=== PATIENT | male | born 1965 | race Caucasian/White ===

== ENCOUNTER 2020-05-27 13:51 | Outpatient (REF) | payer OTHER, SELFPAY ==
[2020-05-27 18:39] LABS: Estimated Average Glucose 157 mg/dL; Hemoglobin A1c % 7.1 %
[2020-05-27 18:55] LABS: Alanine Aminotransferase 20 U/L (0-40); Albumin Level 3.7 g/dL (3.5-5.0); Alkaline Phosphatase 121 U/L (39-117); Anion Gap 16 (12-20); Aspartate Amino Transferase 36 U/L (5-37); Blood Urea Nitrogen 19 mg/dL (9-16); Carbon Dioxide 29 mmol/L (22-29); Chloride 99 mmol/L (96-108); Cholesterol 128 mg/dL; Estimated Glomerular Filt Rate > 60; Glucose Fasting 220 mg/dL (60-99); HDL Cholesterol 42 mg/dL; LDL Cholesterol Calculated 60 mg/dl; Potassium 4.4 mmol/l (3.3-5.1); Sodium 140 mmol/L (135-145); Total Protein 6.4 g/dL (6.5-8.0); Triglycerides 131 mg/dL
== END 2020-05-27 13:52 | disposition home or self-care (01) ==
LOC: HO.MANLR 13:51
PROVIDERS: PCP Internal Medicine; Visit Provider Physician Assistant
DX: E10.65 Type 1 diabetes mellitus with hyperglycemia (principal)
CPT/HCPCS: 36415; 80053; 80061; 83036

== ENCOUNTER 2021-01-15 15:19 | Outpatient (REF) | payer OTHER, SELFPAY ==
[2021-01-15 18:53] LABS: Estimated Average Glucose 143 mg/dL; Hemoglobin A1c % 6.6 %
[2021-01-15 19:00] LABS: Alanine Aminotransferase 28 U/L (0-40); Albumin Level 3.9 g/dL (3.5-5.0); Alkaline Phosphatase 128 U/L (39-117); Anion Gap 14 (12-20); Aspartate Amino Transferase 27 U/L (5-37); Bilirubin Total 0.9 mg/dL (0.0-1.0); Blood Urea Nitrogen 16 mg/dL (9-16); Calcium 9.5 mg/dL (8.4-10.2); Carbon Dioxide 24 mmol/L (22-29); Chloride 101 mmol/L (96-108); Cholesterol 156 mg/dL; Estimated Glomerular Filt Rate > 60; Glucose Random 268 mg/dL (60-115); HDL Cholesterol 44 mg/dL; LDL Cholesterol Calculated 74 mg/dl; Potassium 5.2 mmol/L (3.3-5.1); Sodium 134 mmol/L (135-145); Total Protein 7.1 g/dL (6.5-8.0); Triglycerides 190 mg/dL
[2021-01-15 19:02] LABS: Creatinine Urine 49.45 mg/dL; Microalbum/Creatinine Ratio Ur 436.8 ug/mg cr
== END 2021-01-15 15:20 | disposition home or self-care (01) ==
LOC: HO.MANLDS 15:19
PROVIDERS: PCP Physician Assistant; Visit Provider Physician Assistant
DX: E10.65 Type 1 diabetes mellitus with hyperglycemia (principal)
CPT/HCPCS: 36415; 80053; 80061; 82043; 83036

== ENCOUNTER 2021-07-09 14:18 | Outpatient (REF) | payer OTHER, SELFPAY ==
[2021-07-09 18:25] LABS: Estimated Average Glucose 157 mg/dL; Hemoglobin A1c % 7.1 %
== END 2021-07-09 14:19 | disposition home or self-care (01) ==
LOC: HO.MANLDS 14:18
PROVIDERS: PCP Physician Assistant; Visit Provider Physician Assistant
DX: E10.65 Type 1 diabetes mellitus with hyperglycemia (principal)
CPT/HCPCS: 36415; 83036

== ENCOUNTER 2021-10-28 12:24 | Outpatient (REF) | payer OTHER, SELFPAY ==
[2021-10-28 19:39] LABS: Alanine Aminotransferase 34 U/L (0-40); Albumin Level 3.6 g/dL (3.5-5.0); Alkaline Phosphatase 128 U/L (39-117); Anion Gap 15 (12-20); Aspartate Amino Transferase 21 U/L (5-37); Bilirubin Total 0.8 mg/dL (0.0-1.0); Blood Urea Nitrogen 24 mg/dL (9-16); Calcium 8.7 mg/dL (8.4-10.2); Carbon Dioxide 22 mmol/L (22-29); Chloride 105 mmol/L (96-108); Cholesterol 93 mg/dL; Estimated Glomerular Filt Rate 51; Glucose Random 170 mg/dL (60-115); HDL Cholesterol 38 mg/dL; LDL Cholesterol Calculated 44 mg/dl; Potassium 4.4 mmol/L (3.3-5.1); Sodium 138 mmol/L (135-145); Total Protein 6.3 g/dL (6.5-8.0); Triglycerides 57 mg/dL
[2021-10-29 07:00] LABS: Estimated Average Glucose 169 mg/dL; Hemoglobin A1c % 7.5 %
== END 2021-10-28 12:25 | disposition home or self-care (01) ==
LOC: HO.MANLDS 12:24
PROVIDERS: Visit Provider Physician Assistant
DX: R10.9 Unspecified abdominal pain (principal)
CPT/HCPCS: 36415; 80053; 80061; 83036

== ENCOUNTER 2022-10-09 10:57 | Outpatient (REF) | payer OTHER, SELFPAY ==
[2022-10-09 14:27] LABS: Estimated Average Glucose 177 mg/dL; Hemoglobin A1c % 7.8 %
[2022-10-09 14:29] LABS: Alanine Aminotransferase 25 U/L (0-40); Albumin Level 3.6 g/dL (3.5-5.0); Alkaline Phosphatase 127 U/L (39-117); Anion Gap 15 (12-20); Aspartate Amino Transferase 24 U/L (5-37); Bilirubin Total 1.1 mg/dL (0.0-1.0); Blood Urea Nitrogen 16 mg/dL (9-16); Calcium 9.3 mg/dL (8.4-10.2); Carbon Dioxide 24 mmol/L (22-29); Chloride 105 mmol/L (96-108); Estimated Glomerular Filt Rate > 60; Glucose Random 225 mg/dL (60-115); Potassium 4.7 mmol/L (3.3-5.1); Sodium 139 mmol/L (135-145); Total Protein 6.4 g/dL (6.5-8.0)
== END 2022-10-09 10:58 | disposition home or self-care (01) ==
LOC: HO.MANLDS 10:57
PROVIDERS: Visit Provider Physician Assistant
DX: E10.9 Type 1 diabetes mellitus without complications (principal)
CPT/HCPCS: 36415; 80053; 83036

== ENCOUNTER 2023-05-21 07:56 | Outpatient (REF) | payer OTHER, SELFPAY | END 2023-05-21 07:57 | disposition home or self-care (01) | LOC: HO.MANLDS 07:56 | PROVIDERS: Visit Provider Physician Assistant | DX: E10.9 Type 1 diabetes mellitus without complications (principal) | CPT/HCPCS: 36415; 80053; 80061; 83036 ==

== ENCOUNTER 2024-12-28 07:09 | Outpatient (REF) | payer OTHER, SELFPAY ==
--- OUTSIDE RECORDS SUMMARY | 2024-12-24 23:59 | XMS_ITS | Continuity of Care Document ---
Author Organization [facility] Address [address] [place] [address] [facility] Name Relationship Address Phone SHANTANU MENA spouse Unknown Unavailable ALYSE MENA mother Unknown Unavailable SHANTANU MENA Personal Relationship Unknown Unav ailable SHERMANLLSON, SHANTANU sibling Unknown Unavailable DANAE MENA Personal Relationship Unknown Unava ilable DANAE MENA Personal Relationship Unknown Unava ilable TRINA, OCTOBER former spouse Unknown Unavailable SHANTANU ALDRIDGE Personal Relationship Unknown Vika vailable Care Team Providers Care Print Washer Name Role Phone Carlos Cortés DO Chantal Primary Care Physician [phone] Encounter [facility] Date(s): 11/24/24 - 12/24/24 [facility] [address] [place] [id number]- Encounter Type: Triage Allergies, Adverse Reactions, Alerts No Known Allergies Immunizations Given and Recorded Vaccine Date Status Refusal Reason pneumococcal 23-valent vaccine 03/03/14 Given Medications acetaminophen 325 mg oral tablet 650 mg, By Mouth, Every 4 hours, PRN, Temperature Greater than 100.5, Refills 0, Maintenance, Headache Pain , Mild, 06/16/16 9:56:10 AM EST Start Date: 06/16/16 Status: Ordered Repeat number: 1 aspirin 81 mg oral delayed release tablet = 81 mg, By Mouth, Daily, # 30 tablet, 11 Refills, Maintenance, 03/16/21 6:45:00 AM EDT, EC Tablet,[facility], Partial fill upon patient request if the prescription is for a schedule II opioid drug., 167.64, cm, 03/16/21 3:23:00 EDT, Height, 119.9, kg, 03/13/21 9:21:00 EDT, Dry Weight Start Date: 10/31/21 Status: Ordered Quantity: 30.0 Unit: tablet Repeat number: 12 atorvastatin 80 mg oral tablet 1 tablet = 80 mg, By Mouth, Daily, # 90 tablet, 3 Refills, Maintenance, 11/24/24 10:19:00 AM EDT, Tablet, [facility], Partial fill upon patient request if the prescription is for a schedule II opioid drug., 168, cm, 03/22/24 8:59:00 EST, Height Start Date: 11/24/24 Status: Ordered Quantity: 90.0 Unit: tablet Repeat number: 4 Brilinta (ticagrelor) 90 mg oral tablet 1 tablet, By Mouth, 2 times a day, # 180 tablet, 3 Refills, Maintenance, 03/27/24 8:02:00 AM EST, [facility], 168, cm, 03/22/24 8:59:00 EST, Height, 118, kg, 11/09/22 22:27:00 EDT, Dry Weight Start Date: 03/27/24 Status: Ordered Quantity: 180.0 Unit: tablet Repeat number: 1 Compression Stockings See Instructions, # 1 pair, Maintenance, Juxta Lite Circaid compression wrap Right leg 30-40mmHg, 10/19/16 8:18:18 AM EDT, Compound Start Date: 10/19/16 Status: Ordered Quantity: 1.0 Unit: pair Repeat number: 1 Indications: Varicose veins of right lower extremity with both ulcer of unspecified site and inflammation; Entresto 97 mg-103 mg oral tablet 1 tablet, By Mouth, 2 times a day, # 180 tablet, 3 Refills, Maintenance, 04/19/24 9:33:00 AM EST, Tablet, [facility], Partial fill upon patient request if the prescription is for a schedule II opioid drug., 1 tablet By Mouth 2 times a day, 168, cm, 03/22/24 8:59:00 EST, Height, 118, kg, 11/09/22 22:27:00 EDT, Dry Weight Start Date: 04/19/24 Status: Ordered Quantity: 180.0 Unit: tablet Repeat number: 4 eplerenone 25 mg oral tablet 1 tablet = 25 mg, By Mouth, Daily, # 90 tablet, 3 Refills, Maintenance, 03/22/24 9:04:00 AM EST, Tablet, [facility], Partial fill upon patient request if the prescription is fora schedule II opioid drug., 168, cm, 03/22/24 8:59:00 EST, Height, 118, kg, 11/09/22 22:27:00 EDT, Dry Weight Start Date: 03/22/24 Status: Ordered Quantity: 90.0 Unit: tablet Repeat number: 4 furosemide 40 mg oral tablet 1, tablet, By Mouth, 2 times a day, # 180 tablet, Refills 3, Maintenance, 04/03/24 8:08:00 AM EST, Route to Pharmacy Electronically, [facility], 168, cm, 03/22/24 8:59:00 EST, Height, 118, kg, 11/09/22 22:27:00 EDT, Dry Weight Start Date: 04/03/24 Status: Ordered Quantity: 180.0 Unit: tablet Repeat number: 1 Humalog 100 u/ml subcutaneous injection 80 - 100 units, Daily, via insulin pump, 5 Refills, Maintenance, 03/07/21 4:12:00 PM EDT, Partial fill upon patient request if the prescription is for a schedule II opioid drug. Start Date: 03/07/21 Stop Date: 04/06/21 Status: Ordered Repeat number: 1 Metoprolol Succinate ER 100 mg oral tablet, extended release 1, tablet, By Mouth, Daily, # 90 tablet, Refills 2, Maintenance, 11/10/24 10:00:00 AM EDT, Route to Pharmacy Electronically, [facility], 168, cm, 03/22/24 8:59:00 EST, Height Start Date: 11/10/24 Status: Ordered Quantity: 90.0 Unit: tablet Repeat number: 1 Problem List Condition Confirmation Course Effective Dates Status H ealth Status Informant Anemia of chronic disease Confirmed Active Atherosclerosis Confirmed Active Coronary artery disease Confirmed Active Diabetes mellitus type I Confirmed Active Edema of lower extremity Confirmed Active Exertional angina Confirmed Active Heart failure with preserved ejection fraction Confirmed Active Hyperlipidemia Confirmed Active Hypertension Confirmed Active Wound, open Confirmed Active PAD (peripheral artery disease) Confirmed Active Retinopathy Confirmed Active Severe obesity Confirmed Active Social History Social History Type Response Smoking Status Never smoker entered on: 12/26/13 Sex Sex Representation Male (finding) Patient Care team information Care Team Personnel Name: Vandana Meneses RN Position: [facility] RN Member Role: Primary Care Nurse Name: Cynthia Fisher RN Position: [facility] RN Member Role: Primary Care Nurse Name: Marycarmen Wang RN Position: [facility] District Plant Supervisor Member Role: Primary Care Nurse Name: Jonathan Livingston RN Position: [facility] ED RN W/OE and Tasks Member Role: Primary Care Nurse Name: Carlos Cortés DO Position: Reference Physician Member Role: PCP Address: [address] [place] [address] [place] [address]- [place] Telecom: Name: Alan Mckenzie RN Position: [facility] SN RN Member Role: Primary Care Nurse Name: Shellie Morton RN Position: [facility] RN Member Role: Primary Care Nurse Name: Nemo Cortes RN Position: [facility] District Plant Supervisor Member Role: Primary Care Nurse Name: Wendy Gayle RN Position: [facility] ED RN W/OE and Tasks Member Role: Primary Care Nurse Name: Sheryl Carr RN Position: [facility] SN RN Member Role: Primary Care Nurse Name: Jordana Michaels RN Position: [facility] RN Member Role: Primary Care Nurse Name: Lance Jones III, RN Position: [facility] RN Member Role: Primary Care Nurse Name: Yariel Solano RN Position: [facility] SN RN Member Role: Primary Care Nurse Name: Giselle Jones RN Position: [facility] RN Member Role: Primary Care Nurse Name: Royal Raymond RN Position: [facility] Onco RN Member Role: Primary Care Nurse Name: Rosy Woodruff RN Position: [facility] SN RN Member Role: Primary Care Nurse Name: Anibal Danielle MD Position: [facility] Cardiology MD Member Role: Lifetime Consulting Physician Address: [address] [facility], 1st floor [facility] [place] [address]- [place] Telecom: Name: Tunde Hernandez MD Position: [facility] Renal MD Member Role: Lifetime Consulting Physician Address: [address] [facility] [facility] [address] [facility] [place] [address]- [place] Telecom: Name: Ashwin Farias RNeeprem Position: [facility] SN RN Member Role: Primary Care Nurse Care Team Related Persons Name: SHANTANU FORMAN Name: ALYSE MENA Name: SHANTANU MENA Name: MATT MENA Insurance Providers Guarantor name: DANAE MENA [facility] Plan Information #: 1 Payer: [facility] HMO Payer Identifier: NA Member Number: [id number] Group Number: [id number] Subscriber Identifier: [id number] Relationship to Subscriber: self Coverage Type: Commercial Managed Care - HMO Coverage Verification Date: NA Telecom: [facility] Address:
--- OUTSIDE RECORDS SUMMARY | 2024-12-28 07:12 | XMS_ITS | Clinical Summary ---
Author Organization [facility] Address [address] [place] [id number] Care Team Providers Care Senior Planning Analyst Name Role Phone Carlos Cortés DO Primary Care Provider [phone] Allergies No known active allergies Medications aspirin (ST RASHEED) 81 MG EC tablet Take 81 mg by mouth 1 (one) time each day Active furosemide (LASIX) 20 MG tablet Take 20 mg by mouth 1 (one) time each day 05/22/2019 Active atorvastatin (LIPITOR) 80 MG tablet Take 80 mg by mouth 1 (one) time each day Active metoprolol tartrate (LOPRESSOR) 100 MG tablet Take 200 mg by mouth 2 (two) times a day Active insulin aspart (NovoLOG) 100 UNIT/ML injection Active sacubitril-valsa rtan (Entresto) 24-26 MG per tablet Take 1 tablet by mouth 2 (two) times a day Active Active Problems Problem Noted Date Diagnosed Date Chronic kidney disease, stage 2 (mild) 2 Anemia of chronic disease 01/12/2022 Edema of lower extremity 01/12/2022 Exercise-induced angina 01/12/2022 Heart failure with normal ejection fraction 12/16 Open wound 01/12/2022 Peripheral arterial occlusive disease 01/12/2022 Stage 3a chronic kidney disease 12/12/2020 Chronic kidney disease, stage 2 (mild) 1 Acute nontraumatic kidney injury 12/11/2020 Chronic kidney disease stage 3 12/11/2020 [place] [employer] Association Classification - Clas s II 10/04/2020 Type 1 diabetes mellitus 09/08/2019 Overview (12/11/2020): DIABETES HISTORY Diagnosis - type 1 diabetes, dx at age 9 Treatment - started insulin pump therapy in ~2007 Last Assessment & Plan: Routine eye care is up to date Blood sugar and blood pressure control is very good We did not adjust insulin pump settings today, Ameya tends to calculate his doses manually, not utilizing bolus wizard We discussed likely value of CGM however this is cost prohibitive and Ameya is maintaining good control and reports modest variability without significant hypoglycemia frequency Continues on statin therapy Up to date on flu vaccine per history Encouraged to call with any questions or concerns, we will follow up in 6 months Essential hypertension 05/23/2018 Overview (12/11/2020): Last Assessment & Plan: No longer on ACEi therapy Blood pressure goal is <130/80 due to CAD, DM w/ PDR Renal disorder due to type 1 diabetes mellitus 0 05/23/2018 Overview (12/11/2020): Last Assessment & Plan: Self monitoring blood sugars frequently We did not discuss recent glucose data, Ameya states that these have been largely unchanged and in reasonable range Most recent A1c on file is from over a year ago and this indicated good control We did not discuss changes to insulin infusion settings due to lack of glucose data, Ameya is encouraged to continue to monitor blood sugar patterns and to reach out to us with any questions Advised to continue to do his best with healthy eating in these challenging times and to try to make an effort to be active, at least briefly, daily Ameya seems to be struggling emotionally currently due to loss of job and general isolation, this certainly can affect his diabetes self management as well as his insulin requirement, he is encouraged to reach out to us with any concerns or questions Resolved Problems Problem Noted Date Diagnosed Date Resolved Date Insulin pump present 09/08/2019 021 Overview (12/11/2020): Last Assessment & Plan: Current insulin pump setting Time Basal Rates? Time ICR Time ISF Time Target IOB 12am 1.5u/hr 12am 40 12am 40 12am 70-120 mg/dl 8hrs 9am 0.9 12pm 0.85 4pm 1.1 Not using bolus wizard We discussed current insulin pump settings particularly the insulin on board which is inappropriately long, since Ameya is not using bolus wizard or entering glucose values for corrections he is not being impacted by this setting however if he was to we discussed the likely effects of this Currently receiving enough pump supplies, cannot afford CGM unfortunately Osteomyelitis of left foot 05/23/2018 0 12/11/2020 Amputated below knee 05/23/2018 021 Bilateral cataracts 05/23/2018 12/12/19 21 Coronary arteriosclerosis 05/23/2018 Hyperlipidemia 05/23/2018 12/11/2020 Overview (12/11/2020): Last Assessment & Plan: Currently on high intensity statin therapy No recent labs available for review Microalbuminuric diabetic nephropathy 05/23/2018 12/11/2020 Neuropathy due to diabetes mellitus 05/23/2018 12/11/2020 Nonproliferative retinopathy due to diabetes mellitus 05/23/2018 12/11/2020 Obesity 05/23/2018 12/11/2020 Stented coronary artery 05/23/201811/15 Immunizations Immunization Administration Dates Next Due Influenza (IM) Preservative Free 12/21/2015 Influenza, Quadrivalent, Preservative Free 12/15 Influenza, Quadrivalent, With Preservative 05/26,12/15/2016,12/21/2015 Influenza, Unspecified 04/01/2009 [employer] SARS-COV-2 09/04/2020,08/12/2020 Pfizer SARS-COV-2 05/26/2021,09/04/2020,08/13/19 21 Pneumococcal Polysaccharide 03/03/2014 Family History Medical History Relation Comments Diabetes Father Heart disease Father Hypertension Father Relation Status Comments Father Social History Tobacco Use Types Packs/Day Years Used Date Smoking Tobacco: Never Smokeless Tobacco: Never Alcohol Use Standard Drinks/Week Comments Yes 0 (1 standard drink = 0.6 oz pure alcohol) Alcoholic Drinks/day: Occasional social drink Sex and Gender Information Value Date Recorded Sex Assigned at Not on file Legal Sex Male 4:48 PM EST Gender Identity Not on file Sexual Orientation Not on file Last Filed Vital Signs Vital Sign Reading Time Taken Comments Blood Pressure 119/62 01/03/2024 2:09 PM EDT Pulse 78 01/03/2024 2:09 PM EDT Temperature - - Respiratory Rate - - Oxygen Saturation 98% 01/03/2024 2:09 PM EDT Inhaled Oxygen Concentration - - Weight 119 kg (261 lb 12.8 oz) 01/03/2024 2:09 P M EDT Height 167.6 cm (5' 6 ) 03/07/2019 12:00 PM EDT Body Mass Index 42.26 03/07/2019 12:00 PM EDT Plan of Treatment Upcoming Encounters Date Type Department Care Team (Late st Contact Info) Description 01/01/2025 1:15 PM EDT Office Visit [facility] [address] [place] [address] Tunde Hernandez MD [address] [facility] [address] [place] [id number] Health Maintenance Due Date Last Done Comments Colorectal Cancer Screening: Annual FOBT 2013 Colorectal Cancer Screening: Colonoscopy 2013 Colorectal Cancer Screening: Sigmoidoscopy 2013 Pneumococcal Vaccine: 50+ Years (2 of 2 - PCV) 03/03/2015 03/03/2014 Diabetes: Ophthalmology Exam 06/13/2020 Diabetes: Pedal Pulse Checked 06/13/2020 Diabetes: Sensory Foot Exam 06/13/2020 Diabetes: Visual Foot Exam 06/13/2020 Diabetes: Hemoglobin A1C 01/09/2023 023, 09/23/2020, 03/25/2020, Additional history exists Influenza Vaccine (#1) 2025 2, 12/15/2016, 12/15/2016, Additional history exists Pneumococcal Vaccine: Peds (0 to 5 Years) and At-Risk Patients (6 to 49 Years) Discontinued 03/03/2014 Hepatitis B Vaccine Aged Out No longe r eligible based on patient's age to complete this topic Procedures Procedure Name Priority Date/Time Associated Diagnosis Comments EXT RESULT ENTRY Routine 10/09/2022 from Last 3 Months or Most Recently Relevant to Health Maintenance Results * (ABNORMAL) EXT RESULT ENTRY (10/09/2022) Sodium 139 137 - 147 Potassium 4.7 3.4 - 5.5 Chloride 105.0 99.0 - 108.0 Anion Gap 15 <=30 MMOL/L BUN 16 4 - 21 mg/dL Creatinine 1.07 0.60 - 1.30 mg/dL Albumin 3.6 3.5 - 5.0 g/dL Calcium 9.3 8.7 - 10.7 mg/dL eGFR Non-Afr Iranian 60 Hemoglobin A1C 7.8(A) 4.0 - 6.0 10/09/2022 us Historical Provider LAB BLOOD ORDERABLES Sally l Result from Last 3 Months or Most Recently Relevant to Health Maintenance Insurance [facility] Care Teams Senior Planning Analyst Relationship Specialty Start Date End Date Carlos Cortés DO [address] [place] [address] [facility] - General 05/27/20
--- OUTSIDE RECORDS SUMMARY | 2024-12-28 07:12 | XMS_ITS | Clinical Summary ---
Author Organization [facility] Address [address] [place] [id number] Phone Care Team Providers Care Clay Machine Operator Name Role Phone Carlos Cortés DO Primary Care Provider [phone] Allergies No known active allergies Medications aspirin 81 MG EC tablet Take 1 tablet by mouth daily. Active Medication-Free Text Misc. Devices Air cast walking boot , Sig: as directed DX: E08.621, M86.172 6 Active TRUEPLUS LANCETS 30 gauge Misc USE TO TEST 6 TIMES A DAY 200 each 12 8 Active SACUBITRIL-VALSAR PERALES 24-26 mg per tablet Take 1 tablet by mouth 2 (two) times a day. 1 Active metoprolol succinate (TOPROL-XL) 100 MG 24 hr tablet Take 200 mg by mouth daily. 1 Active BRILINTA 90 mg Tab Take 90 mg by mouth 2 (two) times a day. 1 Active atorvastatin (LIPITOR) 80 MG tablet Take 80 mg by mouth. Active furosemide (LASIX) 40 MG tablet Take 40 mg by mouth 2 (two) times a day. 1 Active glucagon (BAQSIMI) 3 mg/actuation SpryIndications:T ype 1 diabetes mellitus with stable proliferative retinopathy, unspecified laterality 3 mg by Nasal route as needed (in case of severe hypoglycemia). 2 each 3 1 Active colchicine (MITIGARE) 0.6 mg capsule Take 0.6 mg by mouth daily. Active insulin aspart U-100 (NOVOLOG U-100 INSULIN ASPART) 100 unit/mL injection vialIndications:T ype 1 diabetes mellitus with stable proliferative retinopathy, unspecified laterality,Type 1 diabetes mellitus with stage 3 chronic kidney disease, with long-term current use of insulin,Insulin pump in place Administer 80-100 units via insulin pump daily E10.22 E10.40 90 mL 3 5 Active Active Problems Problem Noted Date Diagnosed Date Type 1 diabetes mellitus with proliferative reti nopathy 09/08/2019 Overview (09/08/2019): DIABETES HISTORY Diagnosis - type 1 diabetes, dx at age 9 Treatment - started insulin pump therapy in ~2007 Assessment & Plan (09/04/2024 9:54 AM EDT): Routine eye care is up to date Blood sugar control has worsened based on today's A1c, we did not have glucose patterns available for review Blood pressure control is very good We did not adjust insulin pump settings today, Ameya calculates his doses manually, not utilizing bolus wizard Ameya is aware of the likely value of CGM and we revisited this today however this has been cost prohibitive, we discussed that it would be in his best interest to utilize the [employer] Guardian sensor which will integrate with his insulin pump, advised to discuss coverage for this with [employer] and/or his DME supplier Continues on statin therapy and ARB Encouraged to call with any questions or concerns, we will follow up in 6 months Assessment & Plan (02/14/2024 1:24 PM EDT): Routine eye care is up to date, has upcoming appt Blood sugar control is good and blood pressure control is very good We did not adjust insulin pump settings today, Ameya tends to calculate his doses manually, not utilizing bolus wizard Based on blood sugar data, there are no patterns which would necessitate infusion setting changes, CGM data would likely provide more information to help guide appropriate insulin pump infusion setting changes Ameya is aware of the likely value of CGM however this has been cost prohibitive, we discussed that it appears his [employer] plan covers Dexcom, a prescription for Dexcom G7 has been sent and he will chavez this out at his pharmacy, if he is able to obtain this then he is advised to return to meet with a member of our team to get started with this Ameya has updated his insulin pump, now on Medtronic 780G Continues on statin therapy and ARB Encouraged to call with any questions or concerns, we will follow up in 6 months Assessment & Plan (11/30/2022 1:20 PM EDT): Routine eye care is up to date Blood sugar control is good and blood pressure control is very good We did not adjust insulin pump settings today, Ameya tends to calculate his doses manually, not utilizing bolus wizard Based on blood sugar data, there are no patterns which would necessitate infusion setting changes, CGM data would likely provide more information to help guide appropriate insulin pump infusion setting changes Ameya is aware of the likely value of CGM however this has been cost prohibitive, we discussed that it appears his [employer] plan covers Dexcom however he has a high deductible that he needs to meet, a prescription for Dexcom G7 has been sent and he will chavez this out at his pharmacy, if he is able to obtain this then he is advised to return to meet with a member of our team to get started with this Ameya is due for insulin pump upgrade and is encouraged to contact [employer] [facility] regarding coverage for this Continues on statin therapy and ARB Encouraged to call with any questions or concerns, we will follow up in 6 months Assessment & Plan (09/25/2021 1:27 PM EDT): Routine eye care is up to date Blood sugar control is good and blood pressure control is very good We did not adjust insulin pump settings today, these settings are very conservative and not administrative representative of Ameya's doses, Ameya tends to calculate his doses manually, not utilizing bolus wizard, he was encouraged to use this at our last visit and we discussed adjusting the I:C ratio as entered in his settings, however he did not make this change and does not seem interested in changing his bolusing pattern, his overall control is ok, blood sugar patterns are reasonably stable so he is advised to continue his current regimen Ameya is aware of the likely value of CGM however this is cost prohibitive, Ameya is due for insulin pump upgrade and is encouraged to contact his insurance regarding coverage Continues on statin therapy and ARB Encouraged to call with any questions or concerns, we will follow up in 6 months Assessment & Plan (03/27/2021 1:28 PM EST): Routine eye care is up to date Blood sugar and blood pressure control is very good We did not adjust insulin pump settings today since we did not have much data to review, Ameya tends to calculate his doses manually, not utilizing bolus wizard, he is encouraged to utilize bolus wizard again today, we reviewed current I:C ratio as entered in his settings, encouraged to adjust this to 10 if he uses bolus wizard since his current setting is unlikely to be effective We discussed likely value of CGM however this is cost prohibitive, Ameya is due for insulin pump upgrade and is encouraged to contact his insurance regarding coverage Continues on statin therapy Encouraged to call with any questions or concerns, we will follow up in 6 months Assessment & Plan (09/23/2020 12:00 PM EDT): Routine eye care is up to date Blood sugar and blood pressure control is very good We did not adjust insulin pump settings today, Ameya tends to calculate his doses manually, not utilizing bolus wizard and we did not have glucose data to review however his self report indicates overall variability with poor control overnight and on waking We discussed likely value of CGM however this is cost prohibitive, we discussed CGM pro as noted, advised to return for CGM pro placement which we can do in unblinded fashion so that Ameya can follow his glucose readings in real time Continues on statin therapy Encouraged to call with any questions or concerns, we will follow up in 6 months Assessment & Plan (03/25/2020 11:24 AM EST): Routine eye care is up to date [...] we will follow up in 6 months Assessment & Plan (09/08/2019 9:41 PM EDT): Insulin pump in place 09/08/2019 Assessment & Plan (09/04/2024 9:55 AM EDT): Images from the original note were not included. We did not adjust insulin pump settings today since we do not have glucose pattern information, Ameya does not utilize pump wizard features, he manually boluses for meals based on what he is eating and blood sugar prior to eating, in the past he used ICR and ISF but he does not recall what these were Would benefit from CGM and ideally insulin pump integrated with CGM and AID however cost has been an issue, we had discussed this in the past and revisited this today; an order was sent for Dexcom G7 to pharmacy at our last visit last fall however this was going to be too expensive, Ameya is advised that the Guardian 4 sensor would integrate with his pump and allow for automated delivery which would likely stabilize patterns and reduce risk for hypoglycemia even if Ameya continues to utilize fixed meal doses rather than bolus wizard settings, he is encouraged to discuss coverage for this with his current DME supplier and/or [employer] customer service If Ameya is able to start on CGM then he is encouraged to contact me so we can set up an appointment to get started on this and for him to be aware of the features of the integrated system Current insulin pump is in warranty, Medtronic 780G Assessment & Plan (02/14/2024 1:22 PM EDT): Current insulin pump setting Time Basal Rates? Time ICR Time ISF Time Target IOB 12am 1.50u/hr 12am -- 12am -- 12am -- 4hrs 9am 0.90 12pm 0.85 4pm 1.10 TOTAL 28.4u/day We did not adjust insulin pump settings today Ameya does not utilize pump wizard features, he manually boluses, in the past he used ICR and ISF but he does not recall what these were, now he generally takes fixed dose for a particular meal Would benefit from CGM and ideally insulin pump integrated with CGM and AID however cost has been an issue, we had discussed this in the past and revisited this today; order was sent for Dexcom G7 to pharmacy, this appears to be covered by insurance at the pharmacy, if this is affordable then Ameya is advised to contact us to set up a time to come in for training on this Current insulin pump is in warranty, Medtronic 780G Assessment & Plan (11/30/2022 11:02 AM EDT): Current insulin pump setting Time Basal Rates? Time ICR Time ISF Time Target IOB 12am 1.50u/hr 12am -- 12am -- 12am -- 4hrs 9am 0.90 12pm 0.85 4pm 1.10 TOTAL 28.4u/day We did not adjust insulin pump settings today Ameya does not utilize pump wizard features, he manually boluses Would benefit from CGM and ideally insulin pump integrated with CGM and AID however cost has been an issue, we had discussed this in the past and revisited this today We discussed and order was sent for [email or web address] G7, if this is affordable then Ameya is advised to contact us to set up a time to come in for training on this He is also advised to contact [facility] to discuss coverage of that insulin pump system, contact info given Assessment & Plan (09/25/2021 1:29 PM EDT): Current insulin pump setting Time Basal Rates? Time ICR Time ISF Time Target IOB 12am 1.50u/hr 12am 40 12am 40 12am 70-120 mg/dl 8hrs 9am 0.90 12pm 0.85 4pm 1.10 TOTAL 28.4u/day We did not adjust insulin pump settings today, Ameya's current dosing patterns do not reflect these settings Ameya's IOB is likely too long, this does not affect his insulin delivery currently since he is not using bolus wizard Would benefit from CGM and ideally insulin pump integrated with CGM and AID however cost has been an issue, he is advised to contact [employer] to discuss pump upgrade Assessment & Plan (03/27/2021 1:31 PM EST): Current insulin pump setting Time Basal Rates? Time ICR Time ISF Time Target IOB 12am 1.50u/hr 12am 40 12am 40 12am 70-120 mg/dl 8hrs 9am 0.90 12pm 0.85 4pm 1.10 TOTAL 28.4u/day We did not adjust insulin pump settings today, however we discussed adjusting the I:C ratio in case he uses the bolus wizard Ameya's IOB is likely too long, this does not affect his insulin delivery currently since he is not using bolus wizard Would benefit from CGM and ideally insulin pump integrated with CGM and AID Assessment & Plan (09/23/2020 10:31 AM EDT): Current insulin pump setting Time Basal Rates? Time ICR Time ISF Time Target IOB 12am 1.50u/hr 12am 40 12am 40 12am 70-120 mg/dl 8hrs 9am 0.90 12pm 0.85 4pm 1.10 TOTAL 28.4u/day Ameya is concerned about overnight hypoglycemia risk and often overeats at night causing nocturnal and fasting hyperglycemia as a result, however his 12a to 9a basal rate is the highest of the day We discussed today changes which would be appropriate to stabilize his glucose patterns and reduce his hypoglycemia risk ovenright We also discussed likely value of CGM pro eval, Ameya cannot afford a personal CGM however we could perform a CGM pro unblinded periodically to allow him to see his patterns in real time and allow us to recommend the most appropriate changes in insulin dosing, for now he still has unmet deductible and would not be able to afford this study at this time Assessment & Plan (03/25/2020 11:20 AM EST): Current insulin pump setting Time Basal Rates? [...] enough pump supplies, cannot afford CGM unfortunately Assessment & Plan (09/12/2019 11:01 AM EDT): Using [employer] 630G without CGM Cannot afford strips for linking meter, using a nonlinking meter Self monitoring frequently We unfortunately did not have data to evaluate today, we discussed benefit of uploading to [email or web address] and sharing data with us so that we can help Ameya adjust insulin pump settings as needed Coronary arteriosclerosis in [place] artery 09/07 Assessment & Plan (09/23/2020 11:58 AM EDT): Has upcoming cardiac cath scheduled Would benefit from cardiac rehab if that is indicated post cath, this will help Ameya safely increase activity which he would then be stronly encouraged to continue Glucose control should be optimized to help support underlying vascular issues and reduce future exacerbations/events Stented coronary artery 05/23/2018 Type 1 diabetes mellitus wit h stage 3 chronic kidney disease, with long-term current use of insulin 05/23/2018 Assessment & Plan (09/04/2024 9:56 AM EDT): No recent labs available for review, h/o reduced GFR and microalbuminuria Follows with nephrology regularly Blood pressure is well controlled Blood sugar control is worsened based on A1c, we did not have blood sugar data to review today but this has indicated wide variability in the past, CGM use would likely be of great benefit to Ameya with respect to overall control and hypoglycemia prevention Assessment & Plan (02/14/2024 1:25 PM EDT): No recent labs available for review, h/o reduced GFR and microalbuminuria Blood pressure is well controlled Blood sugar control is suboptimal per glucose records with respect to variability which is high, CGM use would likely be of great benefit to Ameya Assessment & Plan (11/30/2022 1:22 PM EDT): No recent labs available for review, h/o reduced GFR and microalbuminuria We discussed proposed recommendation for SGLT2i therapy which would provide renal and CV benefits in addition to blood sugar lowering effect, we discussed possible issues with this therapy and the fact that coverage may be difficult given Ameya's type 1 diabetes status Blood pressure is well controlled Blood sugar control is suboptimal per glucose records with respect to variability which is high, CGM use would likely be of great benefit Assessment & Plan (09/25/2021 1:28 PM EDT): No recent labs available for review, however these have been requested from PCP office, h/o reduced GFR and microalbuminuria Blood pressure well controlled Blood sugar control is suboptimal per glucose records however the variability is reasonably modest Assessment & Plan (03/27/2021 1:29 PM EST): No recent labs available for review, h/o reduced GFR and microalbuminuria Recently hospitalized for [place] Blood pressure well controlled Blood sugar control is suboptimal Assessment & Plan (09/23/2020 10:33 AM EDT): Most recent lab results reviewed, GFR 55, microalb elevated Blood pressure is well controlled Blood sugar control is suboptimal Hyperlipidemia 05/23/2018 Assessment & Plan (09/04/2024 9:48 AM EDT): Statin therapy is at high intensity No recent blood work available for review today but Ameya reports that this is up to date LDL goal is <55 Follows with cardiology Assessment & Plan (02/14/2024 1:20 PM EDT): Statin is at high intensity No recent blood work available for review today but Ameya reports that this is up to date LDL goal is <55 Follows with cardiology Assessment & Plan (11/30/2022 10:55 AM EDT): Statin is at high intensity No recent blood work available for review today but Ameya reports that this is up to date LDL goal is <55 Follows with cardiology Assessment & Plan (09/25/2021 1:30 PM EDT): Statin is at high intensity No recent blood work available for review today but Ameya reports that this is up to date and the results of his most recent labs have been requested Assessment & Plan (03/27/2021 1:32 PM EST): Statin optimized to high intensity since recent [place] No recent blood work available for review today Would benefit from improvement in lifestyle Assessment & Plan (09/23/2020 10:35 AM EDT): Atorvastatin should be optimized to 80mg daily if tolerated Most recent LDL on file is not at goal Scheduled for cath next week Encouraged to try to improve diet, would benefit from increased activity as well Assessment & Plan (09/12/2019 10:56 AM EDT): Currently on high intensity statin therapy No recent labs available for review Hyperglycemia due to type 1 diabetes mellitus Assessment & Plan (09/23/2020 11:56 AM EDT): Continues with suboptimal control per history, A1c is worsened Some of this is due to fear of hypoglycemia, we discussed the likely overaggressive overnight basal rate which, if reduced, may lead to less defensive eating in evening which is unfortunately leading to fasting hyperglycemia Lifestyle is poor per history Mental health issues are also certainly negatively affecting overall diabetes self management CGM would be most helpful, unfortunately this is cost prohibitive We discussed CGM pro, Ameya is encouraged to return to have this placed when he has met his deductible for the year Assessment & Plan (09/12/2019 11:05 AM EDT): Self monitoring blood sugars frequently We did [...] to us with any concerns or questions Essential hypertension 05/23/2018 Assessment & Plan (09/04/2024 9:47 AM EDT): Continues on ARB as part of antihypertensive regimen Blood pressure is in good control today, goal bp is <130/80 given h/o DM w/NH, CAD, CKD Follows with cardiology and nephrology Assessment & Plan (02/14/2024 1:20 PM EDT): Continues on ARB as part of antihypertensive regimen Blood pressure is in good control today, goal bp is <130/80 given h/o DM w/NH, CAD, CKD Assessment & Plan (11/30/2022 10:54 AM EDT): Continues on ARB as part of antihypertensive regimen Blood pressure is in good control today, goal bp is <130/80 given h/o DM w/NH, CAD, CKD Assessment & Plan (09/25/2021 1:23 PM EDT): Continues on ARB as part of antihypertensive regimen Blood pressure is in excellent control today, goal bp is <130/80 given h/o DM w/NH, CAD, CKD Assessment & Plan (03/27/2021 1:26 PM EST): Now on ARB as part of antihypertensive regimen Blood pressure is in excellent control today, goal bp is <130/80 given h/o DM w/NH, CAD, CKD Assessment & Plan (09/23/2020 10:35 AM EDT): Not currently on ACEi therapy Blood pressure is in good control, goal bp is <130/80 due to CAD, DM w/ PDR Assessment & Plan (09/12/2019 10:58 AM EDT): No longer on ACEi therapy Blood pressure goal is <130/80 due to CAD, DM w/ PDR Diabetic neuropathy 05/23/2018 Immunizations Immunization Administration Dates Next Due INFLUENZA, SPLIT VIRUS, TRIVALENT PF 12/21/2015 Influenza Quadrivalent Preservative Free IM 05/2016 Influenza, Unspecified Formulation 04/01/2009 Family History Medical History Relation Comments Coronary artery disease Father Other Father Alcoholism Other Mother Healthy Other Unspecified Sister alive, deepthi rn 1962, healthy. Brother alive, born 1966, recovering alcoholic. Brother alive, born 1970, healthy. Son alive, age 1993, healthy. Son alive, born 2004, healthy. No other diabetes. Relation Status Comments Father Mother Alive Unspecified Social History Tobacco Use Types Packs/Day Years Used Date Smoking Tobacco: Never Smokeless Tobacco: Never Alcohol Use Standard Drinks/Week Comments No 0 (1 standard drink = 0.6 oz pur e alcohol) Education Answer Date Recorded Are you interested in more education? Not on manjinder e 09/11/2022 Are you concerned about learning? Not on file 09/11/2022 No 09/11/2022 No 09/11/2022 Digital Access Answer Date Recorded No 10/12/2022 No 10/12/2022 Reliable internet access at home? Not on file 10/12/2022 Device with a working camera? Not on file Sex and Gender Information Value Date Recorded Sex Assigned at Male 11/12/2017 7:15 PM EDT Legal Sex Male 9:42 PM EDT Gender Identity Male 11/12/2017 7:15 PM EDT Sexual Orientation Straight 09/20/2020 2: 04 PM EDT Last Filed Vital Signs Vital Sign Reading Time Taken Comments Blood Pressure 122/68 09/04/2024 9:03 AM EDT Pulse 89 09/04/2024 9:03 AM EDT Temperature 35.9 C (96.7 F) 09/25/2021 9:44 AM EDT Respiratory Rate 18 02/09/2020 2:41 PM EDT Oxygen Saturation 98% 09/25/2021 9:44 AM EDT Inhaled Oxygen Concentration - - Weight 119.3 kg (263 lb) 09/04/2024 9:03 AM EDT Height 170.2 cm (5' 7.01 ) 09/04/2024 9:03 AM ED T Body Mass Index 41.18 09/04/2024 9:03 AM EDT Plan of Treatment Upcoming Encounters Date Type Department Care Team (Late st Contact Info) Description 03/19/2025 9:00 AM EST Office Visit [facility] [address] [place] [phone] Kavya Hollis MD [address] [facility] [place] [address] [email or web address] Health Maintenance Due Date Last Done Comments Adult Td,Tdap Booster 1964 DEPRESSION SCREENING 1976 HEPATITIS C SCREENING 1982 HIV ONE-TIME SCREENING (18-65 YEARS) 1982 COLOGUARD 2009 COLONOSCOPY 2009 COLORECTAL CANCER SCREENING 2009 FIT TEST 2009 FOBT 2009 SIGMOIDOSCOPY 2009 VIRTUAL COLONOSCOPY 2009 ZOSTER VACCINES (1 of 2) 2014 PNEUMOCOCCAL VACCINES (50+ years) (2 of 2 - PCV) 03/03/2015 03/03/2014 DIABETIC EYE EXAM 09/08/2019 RSV VACCINE (1 - Risk 60-74 years 1-dose series) 2024 HEMOGLOBIN A1C 12/04/2024 09/04/2024, 02/2 07/2021, 09/23/2020, Additional history exists BLOOD PRESSURE 03/06/2025 09/04/2024 SMOKING STATUS SCREENING (Once After 26 Yrs) Completed 02/09/2020 COVID-19 VACCINE Completed 02/15/2024, , 02/02/2022, Additional history exists HEPATITIS A VACCINES Aged Out No long er eligible based on patient's age to complete this topic HIB VACCINES Aged Out No longer eligi ble based on patient's age to complete this topic MENINGOCOCCAL VACCINES (ACWY) Aged Out No longer eligible based on patient's age to complete this topic MENINGOCOCCAL VACCINES (B) Aged Out N o longer eligible based on patient's age to complete this topic Medical Devices Not on file Procedures Procedure Name Priority Date/Time Associated Diagnosis Comments POCT HEMOGLOBIN A1C Routine 09/04/2024 9 :20 AM EDT Type 1 diabetes mellitus with stable proliferative retinopathy, unspecified laterality Type 1 diabetes mellitus with stage 3 chronic kidney disease, with long-term current use of insulin Insulin pump in place from Last 3 Months or Most Recently Relevant to Health Maintenance Results * (ABNORMAL) POCT Hemoglobin A1c (09/04/2024 9:20 AM EDT) Hemoglobin A1c 8.7(A) 4.2 - 5.6 % [employer] Other 09/04/2024 9:20 AM EDT us Kavya Hollis MD POINT OF CARE TEST ORDERABLES F inal Result [facility] [address] [place] [address], [facility] from Last 3 Months or Most Recently Relevant to Health Maintenance Insurance [address] [place], [place] [address]O O O O O HMO HMO Care Teams Clay Machine Operator Relationship Specialty Start Date End Date Carlos Cortés DO [email or web address] PCP - General Internal Medicine 03/27/21 Additional Source Comments The information contained in this document represents components of the legal health record. It is not the complete legal health record.[facility]
[2024-12-28 10:50] LABS: Appearance Urine Clear; Glucose Urine UA Negative (Negative); PH 5.5 (5.0-9.0); Specific Gravity - Urine 1.010 (1.005-1.025)
[2024-12-28 11:14] LABS: Anion Gap 14 (12-20); Blood Urea Nitrogen 42 mg/dL (9-16); Calcium 9.0 mg/dL (8.4-10.2); Carbon Dioxide 21 mmol/L (22-29); Chloride 107 mmol/L (96-108); Estimated Glomerular Filt Rate 46; Potassium 4.1 mmol/L (3.3-5.1); Sodium 138 mmol/L (135-145)
[2024-12-28 11:29] LABS: Microalbum/Creatinine Ratio Ur 67.9 ug/mg cr (<30); Protein/Creatinine Ratio, Ur 0.18 (<0.2); Total Protein Urine Random 11 mg/dL (<12)
== END 2024-12-28 07:10 | disposition home or self-care (01) ==
LOC: HO.10HDL 07:09
PROVIDERS: Visit Provider Internal Medicine Nephrology
DX: N18.2 Chronic kidney disease, stage 2 (mild) (principal)
CPT/HCPCS: 36415; 80051; 81001; 82043; 82310; 82565; 82570; 84156; 84520

== ENCOUNTER 2025-01-03 07:57 | Outpatient (REF) | payer OTHER, SELFPAY ==
--- OUTSIDE RECORDS SUMMARY | 2025-01-03 08:01 | XMS_ITS | Clinical Summary ---
Author Organization [facility] Address [address] [place] [phone] Phone Care Team Providers Care Research Animal Facility Supervisor Name Role Phone Carlos Cortés DO Primary Care Provider [phone] Allergies No known active allergies Medications aspirin [...] in his best interest to utilize the [employer] Guardian sensor which will integrate with his insulin pump, advised to discuss coverage for this with [employer] and/or his DME supplier Continues on statin [...] these settings are very conservative and not security representative of Ameya's doses, Ameya tends to [...] this with his current DME supplier and/or [employer] customer service If Ameya is able to [...] We discussed and order was sent for [employer] G7, if this is affordable then Ameya is advised to contact us to set up a time to come in for training on this He is also advised to contact [facility] diabetes to discuss coverage of that insulin [...] an issue, he is advised to contact [employer] to discuss pump upgrade Assessment & Plan [...] & Plan (09/12/2019 11:01 AM EDT): Using [employer] 630G without CGM Cannot afford strips for linking meter, using a nonlinking meter Self monitoring frequently We unfortunately did not have data to evaluate today, we discussed benefit of uploading to [employer] and sharing data with us so that we can help Ameya adjust insulin pump settings as needed Coronary arteriosclerosis in lime artery 09/07 Assessment & Plan (09/23/2020 11:58 [...] reduced GFR and microalbuminuria Recently hospitalized for LA Blood pressure well controlled Blood sugar control [...] Statin optimized to high intensity since recent LA No recent blood work available for review [...] goal bp is <130/80 given h/o DM w/CT, CAD, CKD Follows with cardiology and nephrology Assessment & Plan (02/14/2024 1:20 PM EDT): Continues on ARB as part of antihypertensive regimen Blood pressure is in good control today, goal bp is <130/80 given h/o DM w/CT, CAD, CKD Assessment & Plan (11/30/2022 10:54 AM EDT): Continues on ARB as part of antihypertensive regimen Blood pressure is in good control today, goal bp is <130/80 given h/o DM w/CT, CAD, CKD Assessment & Plan (09/25/2021 1:23 PM EDT): Continues on ARB as part of antihypertensive regimen Blood pressure is in excellent control today, goal bp is <130/80 given h/o DM w/CT, CAD, CKD Assessment & Plan (03/27/2021 1:26 PM EST): Now on ARB as part of antihypertensive regimen Blood pressure is in excellent control today, goal bp is <130/80 given h/o DM w/CT, CAD, CKD Assessment & Plan (09/23/2020 10:35 [...] Description 03/19/2025 9:00 AM EST Office Visit [facility] [address] [place] [id number] Kavya Hollis MD [address] [facility] [place] [address] [email or web address] Health Maintenance Due Date Last Done Comments [...] Hemoglobin A1c 8.7(A) 4.2 - 5.6 % [employer] Other 09/04/2024 9:20 AM EDT us Kavya Hollis MD POINT OF CARE TEST ORDERABLES F inal Result [employer] [address] [place] [address], [facility] from Last 3 Months or Most Recently Relevant to Health Maintenance Insurance [address] [place], [place] [address]O O O O O HMO HMO Care Teams Research Animal Facility Supervisor Relationship Specialty Start Date End Date Carlos Cortés DO [email or web address] PCP - General Internal Medicine 03/27/21 Additional Source Comments The information contained in this document represents components of the legal health record. It is not the complete legal health record.[facility]
[2025-01-03 17:14] LABS: MANUAL DIFF FLAG NO
[2025-01-03 17:41] LABS: Hematocrit 40.0 % (42.0-52.0); Hemoglobin 13.0 g/dl (14.0-18.0); Imm Gran Abs Auto 0.01 X10*3/uL (0.00-0.03); Imm Gran Pct Auto 0.2 % (0.0-0.4); Lymphocytes Absolute Auto 0.9 X10*3/uL (1.2-4.9); Mean Corpuscular HGB Conc 32.5 g/dl (31.0-36.0); Mean Corpuscular Hemoglobin 31.3 pg (27.0-33.0); Mean Corpuscular Volume 96.2 fL (80.0-98.0); NRBC Abs Auto 0.000 X10*3/uL (0.0-0.012); NRBC Pct Auto 0.0 /100WBC (0.0-0.2); Platelet Count 253 X10*3/uL (160-400); Red Blood Count 4.16 X10*6/uL (4.60-5.80); White Blood Count 5.6 X10*3/uL (4.8-10.8)
[2025-01-03 17:50] LABS: Hemoglobin A1C 175.0201 umol/L; Total Hemoglobin (HGBA1C) 3423.2478 umol/L
[2025-01-03 18:11] LABS: Alanine Aminotransferase 47 U/L (0-40); Albumin Level 4.1 g/dL (3.5-5.0); Alkaline Phosphatase 112 U/L (39-117); Anion Gap 14 (12-20); Aspartate Amino Transferase 48 U/L (5-37); Blood Urea Nitrogen 35 mg/dL (9-16); Calcium 9.3 mg/dL (8.4-10.2); Carbon Dioxide 21 mmol/L (22-29); Chloride 108 mmol/L (96-108); Cholesterol 109 mg/dL (<200); Estimated Glomerular Filt Rate 44; HDL Cholesterol 46 mg/dL (>40); Potassium 4.3 mmol/L (3.3-5.1); Sodium 139 mmol/L (135-145); Total Protein 6.9 g/dL (6.5-8.0); Triglycerides 72 mg/dL (<150)
== END 2025-01-03 07:58 | disposition home or self-care (01) ==
LOC: HO.MANLDS 07:57
PROVIDERS: Visit Provider Physician Assistant
DX: E78.2 Mixed hyperlipidemia (principal); E10.65 Type 1 diabetes mellitus with hyperglycemia
CPT/HCPCS: 36415; 80053; 80061; 83036; 85025